=== PATIENT | female | born 1990 | race Caucasian/White ===

== ENCOUNTER 2019-12-18 05:03 | Inpatient (IN) | payer OTHER ==
[~2019-12-18] VITALS: Ht 157.5 cm; Wt 95.5 kg
[2019-12-18] MEDS ORDERED: OXYTOCIN 30U/ 0.9% NaCL 500ML 500 ML IV ONE (05:04)
[2019-12-18] MEDS ORDERED: OXYTOCIN 30U/ 0.9% NaCL 500ML 500 ML IV PRN (05:04)
[2019-12-18] MEDS ORDERED: LACTATED RINGERS 1,000 ML IV SCH (05:04)
[2019-12-18] MEDS ORDERED: D5%-LACTATED RINGERS 1,000 ML IV SCH (05:04)
[2019-12-18 05:09] VITALS: BP 134/75
[2019-12-18] MEDS ORDERED: FENTANYL PF 100 MCG/2ML IVPush PRN (05:30)
[2019-12-18] MEDS ORDERED: ONDANSETRON 2MG/ML, 2ML IVPush PRN (05:30)
[2019-12-18] MEDS ORDERED: FENTANYL PF 100 MCG/2ML IV PRN (05:30)
[2019-12-18] MEDS ORDERED: TERBUTALINE 1 MG/ML, 1ML IVPush PRN (05:30)
[2019-12-18] MEDS ORDERED: ALUMINUM/MAG/SIMETHICONE 30 ML UDC PO PRN (05:30)
[2019-12-18] MEDS ORDERED: TERBUTALINE 1 MG/ML, 1ML SQ PRN (05:30)
[2019-12-18 05:46] LABS: BASOPHILS # (AUTO) 0.03 x10^3/uL (0-0.1); BASOPHILS % (AUTO) 0 % (0-1); EOSINOPHILS # (AUTO) 0.08 x10^3/uL (0-0.4); EOSINOPHILS % (AUTO) 1 % (1-7); LYMPHOCYTES # (AUTO) 2.16 x10^3/uL (1-3.4); LYMPHOCYTES % (AUTO) 22 % (22-44); MD NO; MEAN CORPUSCULAR HEMOGLOBIN 31.3 pg (27.0-34.8); MEAN CORPUSCULAR HGB CONC 33.8 g/dL (32.4-35.8); MEAN CORPUSCULAR VOLUME 92.5 fL (80-100); MEAN PLATELET VOLUME 8.6 fL (7.4-10.4); MONOCYTES % (AUTO) 5 % (2-9); NEUTROPHILS # (AUTO) 7.08 x10^3/uL (1.8-6.8); NEUTROPHILS % (AUTO) 72 % (42-75); PLATELET COUNT 205 x10^3/uL (130-400); RED BLOOD COUNT 4.08 x10^6/uL (3.82-5.3); RED CELL DISTRIBUTION WIDTH 13.3 % (9.6-15.2)
[2019-12-18] MEDS ORDERED: ONDANSETRON 2MG/ML, 2ML ONE (05:47)
[2019-12-18] MEDS ORDERED: OXYTOCIN 30U/ 0.9% NaCL 500ML 500 ML ONE (05:47)
[2019-12-18] MEDS ORDERED: NEWBORN KIT ONE (07:28)
[2019-12-18] MEDS ORDERED: FENTANYL PF 100 MCG/2ML ONE (12:59)
[2019-12-18] MEDS: OXYTOCIN 30U/ 0.9% NaCL 500ML 500 ML IV SCH (14:17)
[2019-12-18] MEDS ORDERED: METHYLERGONOVINE 0.2 MG/ML IM PRN (14:30)
[2019-12-18] MEDS ORDERED: DOCUSATE 100 MG CAPSULE PO PRN (14:30)
[2019-12-18] MEDS ORDERED: OXYcodone/APAP 5/325MG TABLET PO PRN ×2 (14:30)
[2019-12-18] MEDS ORDERED: MISOPROSTOL 200 MCG TABLET PR PRN (14:30)
[2019-12-18] MEDS ORDERED: CARBOPROST TROMETHAMINE 250 MCG/ML, 1ML IM PRN (14:30)
[2019-12-18] MEDS ORDERED: ACETAMINOPHEN 325 MG TABLET PO PRN ×2 (14:30)
[2019-12-18] MEDS ORDERED: SIMETHICONE 80 MG CHEW TAB PO PRN (14:30)
[2019-12-18 16:36] VITALS: BP 109/71
[2019-12-18] MEDS: IBUPROFEN 600 MG TABLET PO PRN ×2 (17:04→23:05)
[2019-12-18 19:20] VITALS: BP 119/68
[2019-12-18 22:03] LABS: MEAN CORPUSCULAR HEMOGLOBIN 31.2 pg (27.0-34.8); MEAN CORPUSCULAR HGB CONC 33.7 g/dL (32.4-35.8); MEAN CORPUSCULAR VOLUME 92.6 fL (80-100); MEAN PLATELET VOLUME 8.7 fL (7.4-10.4); PLATELET COUNT 232 x10^3/uL (130-400); RED BLOOD COUNT 3.78 x10^6/uL (3.82-5.3); RED CELL DISTRIBUTION WIDTH 13.4 % (9.6-15.2)
[2019-12-18 22:26] LABS: MD YES
[2019-12-18 22:28] LABS: BAND#(MANUAL) 0.35 x10^3/uL; BANDS%(MANUAL) 2 % (0-7); LYMPH#(MANUAL) 2.98 x10^3/uL (1-3.4); LYMPHS% (MANUAL) 17 % (22-44); MONOS#(MANUAL) 0.53 x10^3/uL (0.3-2.7); MONOS% (MANUAL) 3 % (2-9); SEG#(MANUAL) 13.65 x10^3/uL (1.8-6.8); SEGS% (MANUAL) 78 % (42-75)
[2019-12-18 22:29] LABS: <PLATELET ESTIMATE> ADEQUATE; <PLT MORPHOLOGY> NORMAL PLT MORPH; <RBC MORPHOLOGY> NORMAL
[2019-12-18 23:59] VITALS: BP 107/57
[2019-12-19] MEDS: OXYTOCIN 30U/ 0.9% NaCL 500ML 500 ML IV SCH ×2 (00:17→10:17)
[2019-12-19 04:00] VITALS: BP 105/55
[2019-12-19] MEDS: IBUPROFEN 600 MG TABLET PO PRN ×2 (05:37→11:49)
[2019-12-19 07:40] VITALS: BP 114/72
[2019-12-19] MEDS ORDERED: PRENATAL VIT/IRON/FA 1 EACH TABLET PO SCH (09:00)
[2019-12-19 12:25] VITALS: BP 124/79
== END 2019-12-19 12:45 | disposition home or self-care (01) | DRG 807 ==
LOC: LDIP 05:03 → 2NW 16:08
PROVIDERS: ADMIT Obstetrics & Gynecology Maternal & Fetal Medicine; ATTEND Obstetrics & Gynecology Maternal & Fetal Medicine
PROC: 10E0XZZ Delivery of Products of Conception, External Approach (ICD-10-PCS; principal; 2019-12-18)
PROC: 10907ZC Drainage of Amniotic Fluid, Therapeutic from Products of Conception, Via Natural or Artificial Opening (ICD-10-PCS; 2019-12-18)
PROC: 3E033VJ Introduction of Other Hormone into Peripheral Vein, Percutaneous Approach (ICD-10-PCS; 2019-12-18)
DX: O80 Encounter for full-term uncomplicated delivery (principal); Z37.0 Single live birth; Z3A.39 39 weeks gestation of pregnancy
CPT/HCPCS: 36415; 82803; 85025; 86592; 86850; 86900; G0378; J2405; J3010; J2590; J7120